=== PATIENT | male | born 1975 ===

== ENCOUNTER 2022-01-04 19:35 | Emergency (ER) | payer OTHER ==
[2022-01-04] MEDS ORDERED: DIPH,PERTUS(ACELL)TETVAC-LF 0.5 ML VIAL IM ONE (19:39)
[2022-01-04 19:44] VITALS: BP 144/96; PULSE 72; RESP 16; TEMP 97.9
[2022-01-04] MEDS ORDERED: fentaNYL (PF) 50 MCG/ML 5 ML AMP IV ONE (20:08)
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
== END 2022-01-04 20:55 | disposition other institution (70) ==
LOC: EC 19:35
DX: T23.009A Burn of unspecified degree of unspecified hand, unspecified site, initial encounter (principal); T23.231A Burn of second degree of multiple right fingers (nail), not including thumb, initial encounter
CPT/HCPCS: 90715; 99285; 96374; 90471; J3010